=== PATIENT | male | born 1960 | race Caucasian/White ===

== ENCOUNTER 2019-02-18 07:02 | Day surgery (SDC) | payer MEDICARE ==
[~2019-02-18] VITALS: Ht 160 cm; Wt 152.3 kg
[2019-02-18 07:34] LABS: ANION GAP 12.4 mmol/L (8-16); CALCIUM 8.6 mg/dL (8.5-10.1); CARBON DIOXIDE 28.7 mmol/L (21.0-32.0); CREATININE - SERUM 1.3 mg/dL (0.6-1.3); POTASSIUM - SERUM 4.1 mmol/L (3.5-5.1)
[2019-02-18 07:37] LABS: HEMOGLOBIN 12.4 g/dL (13.5-17.5); MCH 30.3 pg (26.0-34.0); MCHC 32.6 g/dL (31.0-37.0); MCV 92.9 fL (80.0-100.0); MEAN PLATELET VOLUME 10.8 fL (7.4-10.4); RBC 4.09 10x6/uL (4.20-6.10); RDW 14.5 % (11.5-14.5)
[2019-02-18] MEDS ORDERED: NORVASC5 MG PO (07:58)
[2019-02-18] MEDS ORDERED: NEURONTIN 300300 MG PO (07:58)
[2019-02-18] MEDS ORDERED: TEMAZEPAM30 MG PO (07:59)
[2019-02-18] MEDS ORDERED: HYDROCODON-ACE1 EAC7 PO (07:59)
[2019-02-18] MEDS ORDERED: LIPITOR40 MG PO (07:59)
[2019-02-18] MEDS ORDERED: GLIPIZIDE10 MG PO (08:00)
[2019-02-18] MEDS ORDERED: CYMBALTA60 MG PO (08:00)
[2019-02-18] MEDS ORDERED: TRADJENTA5 MG PO (08:00)
[2019-02-18] MEDS ORDERED: FUROSEMIDE20 MG PO (08:00)
[2019-02-18 08:10] VITALS: BP 141/64; Ht 160 cm; Wt 152.3 kg
--- NOTE | 2019-02-18 10:05 | NUR ---
PT DC INSTRUCTIONS REMOVED AT THIS TIME. PT VERBALIZES UNDERSTANDIG AND AGREES. IV CATH REMOVED, NO REDNESS OR SWELLING NOTED AT SITE. PT WAITING TO SPEAK WITH DR WHITAKER AT THIS TIME.
--- NOTE | 2019-02-18 10:09 | NUR ---
pT LEAVING OPS UNIT AT THIS TIME.
--- NOTE | 2019-02-22 16:05 | OP ---
PATIENT NAME: AMEE NIETO MEDICAL RECORD: [id number] :64 LOCATION:D.OPS ADMISSION DATE: SURGEON: CELESTE WHITAKER DO DATE OF OPERATION: 02/18/2019 PROCEDURE: Colonoscopy with cold forceps polypectomy and random biopsies. INDICATIONS FOR PROCEDURE: Occult blood in stools. SCOPE: [employer] video pediatric colonoscope. MEDICATIONS: Propofol 700 mg IV per anesthesia. WITHDRAWAL TIME: 13 minutes. ESTIMATED BLOOD LOSS: Minimal. COMPLICATIONS: None. FINDINGS: Informed consent was given. The patient was made comfortable with the above medication. After reaching an adequate level of sedation by slow IV push, the patient was placed on his left side. A digital rectal examination was performed and was normal. The endoscope was advanced under direct visualization through the rectum to the cecum and terminal ileum. The endoscope was slowly withdrawn and the mucosa was carefully examined. The prep quality was fair. There was 1 polyp seen on today's examination. It was a benign appearing sessile polyp located in the sigmoid colon. It measured approximately 2-3 mm in diameter and was removed using cold forceps completely. Throughout the entire colon, the mucosa had an abnormal appearance. There was some decreased vascularity and congestion throughout the entire colon. So, random biopsies were taken to submit for histopathology and to look for microscopic colitis and other etiologies for these changes. Retroflexion was performed in the rectum with a normal appearing rectal wall. The endoscope was withdrawn from the patient. The patient tolerated the procedure well and there were no complications. IMPRESSION: 1. Sigmoid polyp times 1 removed using cold forceps. 2. Abnormal mucosa throughout the entire colon with congestion and decreased vascularity. Random biopsies were taken. PLAN AND RECOMMENDATIONS: 1. Discharge home when recovery parameters are met. 2. High fiber diet. 3. Continue current medications. 4. Recall colonoscopy in 5 years based on the polyp that was removed on today's examination. 5. If symptoms warrant sooner evaluation. This will be reconsidered. 6. Follow up biopsy specimen results with further recommendations if indicated once the pathology returns. TRANSINT:[id number] Voice Confirmation ID: [id number] DOCUMENT ID: [id number] OPERATIVE REPORT [id number] AMEE NIETO CELESTE WHITAKER DO at [id number] CC: [id number] DICTATION DATE: 02/18/19 0858 [place] ATTORNEY: 02/18/19 1136 DEP [place] 02/18/19 [facility] [address] [place] [address]
== END 2019-02-18 10:09 | disposition home or self-care (01) ==
LOC: D.OPS 07:02
PROVIDERS: Anesthesiology; ATTEND Internal Medicine Gastroenterology
DX: D12.5 Benign neoplasm of sigmoid colon (principal); Z01.812 Encounter for preprocedural laboratory examination